=== PATIENT | female | born 1930 | race Caucasian/White ===

== ENCOUNTER 2020-12-24 09:38 | Emergency (ER) | payer MEDICARE ==
[~2020-12-24 09:38] MED LIST: ASPIRIN EC81 MG PO; ENSURE ORIGINA237 ML PO; EUTHYROX50 MCG PO; LISINOPRIL40 MG PO; MIRALAX17 GM PO; OMNICEF 300 MG300 MG PO; ZITHROMAX1 GM PO
[2020-12-24 10:28] LABS: RED BLOOD COUNT 4.79 M/UL (4.00-5.10); WHITE BLOOD COUNT 7.3 K/UL (4.5-11.0)
[2020-12-24 10:41] LABS: BUN/CREATININE RATIO 23 (0-10)
[2020-12-24] MEDS ORDERED: PREDNISONE 20 M20 MG PO (12:25)
[2020-12-24] MEDS ORDERED: LEVOFLOXACIN500 MG PO (12:25)
== END 2020-12-24 12:41 | disposition home or self-care (01) ==
LOC: ER1 09:38
PROVIDERS: Internal Medicine
DX: J44.1 Chronic obstructive pulmonary disease with (acute) exacerbation (principal); I10 Essential (primary) hypertension; E03.9 Hypothyroidism, unspecified; Z85.3 Personal history of malignant neoplasm of breast; Z20.822 Contact with and (suspected) exposure to COVID-19
CPT/HCPCS: 0240U; 36415; 36600; 71045; 80053; 81001; 82803; 83605; 85025; 85610; 85730; 87040; 93005; 96374; 99285; J2930

== ENCOUNTER 2021-01-27 19:39 | Emergency (ER) | payer MEDICARE ==
[~2021-01-27 19:39] MED LIST changes: +LEVOFLOXACIN500 MG PO; +PREDNISONE 20 M20 MG PO
== END 2021-01-27 20:56 | disposition home or self-care (01) ==
LOC: ER1 19:39
DX: T81.30XA Disruption of wound, unspecified, initial encounter (principal); I10 Essential (primary) hypertension; J44.9 Chronic obstructive pulmonary disease, unspecified
CPT/HCPCS: 99282

== ENCOUNTER 2021-05-16 12:59 | Inpatient (IN) | payer MEDICARE ==
[~2021-05-16] VITALS: Ht 157.5 cm; Wt 43.3 kg
[2021-05-16 14:07] LABS: HEMOGLOBIN 15.4 gm/dl (12.3-15.3); RED BLOOD COUNT 4.9 M/UL (4.00-5.10); WHITE BLOOD COUNT 7.1 K/UL (4.5-11.0)
[2021-05-16 14:25] LABS: BUN/CREATININE RATIO 22 (0-10)
[2021-05-16] MEDS ORDERED: PROAIR DIGIHAL90 MCG INH (21:03)
[2021-05-17 05:32] LABS: RED BLOOD COUNT 4.8 M/UL (4.00-5.10)
[2021-05-17 05:33] LABS: WHITE BLOOD COUNT 5.3 K/UL (4.5-11.0)
[2021-05-17 05:48] LABS: BUN/CREATININE RATIO 19 (0-10)
[2021-05-17] MEDS ORDERED: AUGMENTIN 875-1 EACH PO (15:00)
== END 2021-05-17 17:32 | disposition home or self-care (01) | DRG 862 ==
LOC: ER1 12:59 → CDU 16:17 → M/S 19:39
PROVIDERS: Physician Assistant; Physician Assistant Medical; ADMIT Internal Medicine
DX: T81.41XA Infection following a procedure, superficial incisional surgical site, initial encounter (principal); J18.9 Pneumonia, unspecified organism; J44.0 Chronic obstructive pulmonary disease with (acute) lower respiratory infection; L03.116 Cellulitis of left lower limb; Z20.822 Contact with and (suspected) exposure to COVID-19; I10 Essential (primary) hypertension; E03.9 Hypothyroidism, unspecified; C50.919 Malignant neoplasm of unspecified site of unspecified female breast; Y83.8 Other surgical procedures as the cause of abnormal reaction of the patient, or of later complication, without mention of misadventure at the time of the procedure; Y70.3 Surgical instruments, materials and anesthesiology devices (including sutures) associated with adverse incidents; Z90.49 Acquired absence of other specified parts of digestive tract; Z79.82 Long term (current) use of aspirin; Z79.01 Long term (current) use of anticoagulants; Z83.3 Family history of diabetes mellitus; Z82.49 Family history of ischemic heart disease and other diseases of the circulatory system; Z85.828 Personal history of other malignant neoplasm of skin; Z93.3 Colostomy status
CPT/HCPCS: 0240U; 36415; 36600; 70450; 71045; 80048; 80053; 80202; 81001; 82803; 83605; 84439; 84443; 84484; 85025; 85652; 86140; 87040; 87070; 87077; 87086; 87186; 87205; 93005; 94664; 94760; 96374; 99285; J1650; J2543; J3370; J7030